=== PATIENT | male | born 1955 | race African-American/Black ===

== ENCOUNTER 2018-10-28 23:42 | Emergency (ER) | payer MEDICARE ==
[2018-10-29] MEDS ORDERED: HYDROcodone/Acetaminophen 10/325 mg Tablet ONE (03:05)
--- NOTE | 2018-10-29 08:53 | RAD ---
EXAM: XR Knee Lt 4 View STANDARD PROVIDED CLINICAL HISTORY: Pain FINDINGS: There is no evidence for fracture or other acute osseous abnormality. Alignment appears anatomic. Madelin nt spaces appear preserved. Intra-articular body within the patellofemoral joint superiorly. IMPRESSION: No evidence for an acute osseous abnormality. Correlate with subsequently performed CT.
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
== END 2018-10-29 02:15 | disposition home or self-care (01) ==
LOC: ERS 23:42
DX: V43.52XA Car driver injured in collision with other type car in traffic accident, initial encounter (principal)
CPT/HCPCS: 72125; 72192

== ENCOUNTER 2018-11-03 08:11 | Day surgery (SDC) | payer MEDICARE ==
[2018-11-02 14:23] VITALS: BMI 28.0
[2018-11-03] MEDS ORDERED: ceFAZolin Sodium (SDC) 2 GM/100 ML BAG ONE (08:24)
[2018-11-03] MEDS ORDERED: PROPOFOL 20 ML ONE (08:43)
[2018-11-03] MEDS ORDERED: Bupivacaine HCl 0.5%/Epinephrine 1:200,000/PF 30 ml Vial ONE (09:35)
[2018-11-03] MEDS ORDERED: Bupivacaine/Epinephrine 0.25% 30 ML VIAL ONE (09:35)
[2018-11-03] MEDS ORDERED: Fentanyl 100 MCG/2 ML VIAL ONE (09:44)
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
== END 2018-11-03 13:18 | disposition home or self-care (01) ==
LOC: SDC 08:11
PROVIDERS: ATTEND Orthopaedic Surgery
PROC: 0SBD4ZZ Excision of Left Knee Joint, Percutaneous Endoscopic Approach (ICD-10-PCS; principal; 2018-11-03)
PROC: 0SBD4ZZ Excision of Left Knee Joint, Percutaneous Endoscopic Approach (ICD-10-PCS; 2018-11-03)
DX: M23.352 Other meniscus derangements, posterior horn of lateral meniscus, left knee (principal); S83.242A Other tear of medial meniscus, current injury, left knee, initial encounter; I10 Essential (primary) hypertension; E78.00 Pure hypercholesterolemia, unspecified; F17.200 Nicotine dependence, unspecified, uncomplicated; Z79.82 Long term (current) use of aspirin; Z79.899 Other long term (current) drug therapy; Z88.5 Allergy status to narcotic agent; Z98.1 Arthrodesis status; V89.2XXA Person injured in unspecified motor-vehicle accident, traffic, initial encounter
CPT/HCPCS: J0670; J0690; J2704; J3010